=== PATIENT | male | born 1975 | race Caucasian/White ===

== ENCOUNTER → 2022-12-04 16:00 | Outpatient (BNVA) | payer BC, SELFPAY | PROVIDERS: PCP Family Medicine; Visit Provider Family Medicine | DX: G47.30 Sleep apnea, unspecified (principal); G47.33 Obstructive sleep apnea (adult) (pediatric); I10 Essential (primary) hypertension; J30.2 Other seasonal allergic rhinitis | CPT/HCPCS: 80053; 80061; 82785; 83036; 84439; 84443; 85025; 86003 ==

== ENCOUNTER 2023-01-15 16:45 | Outpatient (CLI) | payer BC, SELFPAY | END 2023-01-15 16:46 | disposition home or self-care (01) | LOC: SLEEP 01-16 16:47 | PROVIDERS: PCP Family Medicine; Visit Provider Family Medicine | DX: G47.33 Obstructive sleep apnea (adult) (pediatric) (principal) | CPT/HCPCS: G0399 ==

== ENCOUNTER → 2024-04-06 11:38 | Outpatient (BNVA) | payer BC, SELFPAY | PROVIDERS: PCP Family Medicine; Visit Provider Family Medicine | DX: J30.2 Other seasonal allergic rhinitis (principal); I10 Essential (primary) hypertension; R73.03 Prediabetes; E78.00 Pure hypercholesterolemia, unspecified; L30.9 Dermatitis, unspecified | CPT/HCPCS: 80053; 83036; 86003; 86008 ==

== ENCOUNTER → 2024-08-31 10:21 | Outpatient (BNVA) | payer BC, SELFPAY | PROVIDERS: PCP Family Medicine; Visit Provider Family Medicine | DX: R73.03 Prediabetes (principal) | CPT/HCPCS: 80053; 83036 ==